=== PATIENT | male | born 2005 | race Caucasian/White ===

== ENCOUNTER 2024-03-19 22:23 | Emergency (ER) | payer OTHER, BC, SELFPAY ==
[2024-03-19 22:25] VITALS: BP 114/96; PULSE 78; RESP 16; TEMP 36.4; O2SAT 100
[2024-03-19 22:42] LABS: Basophils Percent Auto 0.5 % (0.2-1.2); Eosinophils Absolute Auto 0.1 K/mm3 (0-0.3); Eosinophils Percent Auto 1.6 % (0-4.4); Hematocrit 46.8 % (42.0-52.0); Hemoglobin 15.5 g/dL (14.0-18.0); Immature Granulocyte Absolute 0.02 K/mm3 (0.00-0.031); Immature Granulocyte Percent A 0.3 % (0-0.5); Lymphocytes Absolute Auto 2.46 K/mm3 (0.9-3.2); Lymphocytes Percent Auto 32.9 % (18.3-44.2); Mean Corpuscular HGB Conc 33.1 g/dl (32-36); Mean Corpuscular Hemoglobin 29.8 pg (26-34); Mean Platelet Volume 8.5 fl (7.4-10.4); Monocytes Absolute Auto 0.6 K/mm3 (0.1-0.6); Monocytes Percent Auto 8.4 % (2.6-8.5); Neutrophils Absolute Auto 4.2 K/mm3 (1.3-6.7); Neutrophils Percent Auto 56.3 % (45.5-73.1); Platelet Count Result 351 k/mm3 (150-375); Red Cell Distribution Width 13.1 % (11.5-14.5); White Blood Count 7.5 K/mm3 (4.5-10.0)
[2024-03-19 23:04] LABS: Alanine Aminotransferase 69 U/L (6-50); Albumin Level 5.2 g/dL (3.5-5.1); Alkaline Phosphatase 59 U/L (38-126); Anion Gap 16 mmol/L (4-12); Aspartate Amino Transferase 172 U/L (17-59); Bilirubin,Total 0.9 mg/dL (0.2-1.3); Blood Urea Nitrogen 9 mg/dL (9-20); Calcium 9.5 mg/dL (8.4-10.2); Carbon Dioxide 26 mmol/L (22-30); Chloride 94 mmol/L (98-107); Estimated Glomerular Filt Rate > 60; Glucose 104 mg/dL (65-110); Potassium 3.6 mmol/L (3.4-5.0); Sodium 136 mmol/L (137-145)
[2024-03-19 23:53] LABS: Magnesium 1.9 mg/dL (1.6-2.3)
[2024-03-20 00:15] VITALS: RESP 14; O2SAT 100
--- NOTE | 2024-03-20 00:36 | ED.GENADULT ---
HPI - General Adult General Chief complaint: Unspecified Stated complaint: muscles are tight and tingly Time Seen by Provider: 03/20/24 00:22 History of Present Illness HPI narrative: 19-year-old male present to the emergency department for evaluation after having cramping of his hands and tingling of his perioral region. Patient was just returning from [facility] and was getting dropped off at his [employer] when he began having the symptoms. Patient states he was not having anxiety prior to the episode did not feel particularly anxious because of the episode. Patient is unsure if he was hyperventilating as response to the initial symptoms. Patient states he did drink plenty of water this morning. Patient reports his symptoms have resolved. Patient denies any pain or complaints at this time. Patient reports he is otherwise healthy. Related Data Allergies Allergy/AdvReac Type Severity Reaction Status Date / Time No Known Allergies Allergy Verified 03/20/24 00:46 Review of Systems Review of Systems: All systems reviewed & are unremarkable except as noted in HPI and below Exam Narrative: APPEARANCE: Well appearing, no pain, no distress, well-nourished. HEAD: normocephalic, atraumatic. EYES: PERRLA/EOMI, conjunctivae clear. NOSE: Normal no drainage EARS:TMS clear with good light reflex. THROAT: Pharynx clear, no exudate. NECK: Supple. No adenopathy, no masses. RESPIRATORY: Airway patent, respirations nonlabored. Clear to auscultation bilaterally, no rales, rhonchi, wheezing. CARDIOVASCULAR: Regular rate and rhythm without murmurs rubs or gallops. ABDOMINAL: Soft, nontender, nondistended, normal bowel sounds MUSCULOSKELETAL: Moves all extremities. Strength/ROM intact, No edema, No calf tenderness. NEURO: Alert. Cranial nerves II through XII intact. Good gait. Good coordination SKIN: Warm, dry. Normal Color Course Course Emergency Course: Patient was discharged home with instructions for follow-up Vital Signs Vital signs: Vital Signs Temperature 97.5 F L 03/19/24 22:25 Pulse Rate 78 03/19/24 22:25 Respiratory Rate 16 03/19/24 22:25 Blood Pressure 114/96 H 03/19/24 22:25 Pulse Oximetry 100 03/19/24 22:25 Oxygen Delivery Room Air 03/19/24 22:25 Temperature 98.0 F 03/20/24 01:47 Pulse Rate 77 03/20/24 01:47 Respiratory Rate 19 03/20/24 01:47 Blood Pressure 114/73 03/20/24 01:47 Pulse Oximetry 100 03/20/24 01:47 Oxygen Delivery Room Air 03/19/24 22:25 Medical Decision Making MDM Narrative Medical decision making narrative: 19-year-old male presents emergency department for evaluation for hand cramping and lightheadedness that has since resolved. Patient is afebrile with no leukocytosis and a stable hemoglobin of 15.5. Patient has no significant abnormalities on his CMP, AST ALT are mildly elevated patient did just return from [place] and did drink some alcohol. Suspect patient may have been dehydrated and had some hand cramping. Differential Diagnosis Differential Diagnosis: Dehydration, anxiety, electrolyte abnormality. Vital Signs Vital Signs: Vital Signs Temperature 97.5 F L 03/19/24 22:25 Pulse Rate 78 03/19/24 22:25 Respiratory Rate 16 03/19/24 22:25 Blood Pressure 114/96 H 03/19/24 22:25 Pulse Oximetry 100 03/19/24 22:25 Oxygen Delivery Room Air 03/19/24 22:25 Temperature 98.0 F 03/20/24 01:47 Pulse Rate 77 03/20/24 01:47 Respiratory Rate 19 03/20/24 01:47 Blood Pressure 114/73 03/20/24 01:47 Pulse Oximetry 100 03/20/24 01:47 Oxygen Delivery Room Air 03/19/24 22:25 Lab Data Lab results reviewed: Yes I reviewed the patient's lab results. 03/19/24 22:36 03/19/24 22:36 Labs: Lab Results 03/19/24 Range/Units 22:36 WBC 7.5 (4.5-10.0) K/mm3 RBC 5.20 (4.6-6.20) M/mm3 Hgb 15.5 (14.0-18.0) g/dL Hct 46.8 (42.0-52.0) % MCV 90.0 (80-100) fl MCH 29.8 (26-34) pg
[2024-03-20] MEDS: SODIUM CHLORIDE 0.9% IV 1,000 ML 999 ML IV CONT (00:47)
[2024-03-20 01:47] VITALS: BP 114/73; PULSE 77; RESP 19; TEMP 36.7; O2SAT 100
== END 2024-03-20 01:49 | disposition home or self-care (01) ==
PROVIDERS: Emergency Provider Emergency Medicine
DX: R25.2 Cramp and spasm (principal); E86.0 Dehydration
CPT/HCPCS: 36415; 80053; 83735; 85025; 96360; 99283; J7030